=== PATIENT | female | born 1990 | race Caucasian/White ===

== ENCOUNTER → 2020-08-19 13:18 | Outpatient (BNVA) | payer OTHER, SELFPAY | PROVIDERS: Family Provider Family Medicine; PCP Family Medicine; Visit Provider Obstetrics & Gynecology | DX: Z32.01 Encounter for pregnancy test, result positive (principal) | CPT/HCPCS: 81025 ==

== ENCOUNTER → 2020-09-14 09:50 | Outpatient (BNVA) | payer OTHER, SELFPAY | PROVIDERS: Family Provider Family Medicine; PCP Family Medicine; Visit Provider Obstetrics & Gynecology | DX: Z34.90 Encounter for supervision of normal pregnancy, unspecified, unspecified trimester | CPT/HCPCS: 80307; 84315; 85027; 86592; 86803; 86850; 86900; 87086; 87340 ==

== ENCOUNTER → 2020-09-27 12:02 | Outpatient (BNVA) | payer OTHER, SELFPAY | PROVIDERS: Family Provider Family Medicine; PCP Family Medicine; Visit Provider Obstetrics & Gynecology | DX: Z34.81 Encounter for supervision of other normal pregnancy, first trimester (principal) | CPT/HCPCS: 84315; 87491; 87591 ==

== ENCOUNTER → 2021-01-10 10:36 | Outpatient (BNVA) | payer OTHER, SELFPAY | PROVIDERS: Family Provider Family Medicine; PCP Family Medicine; Visit Provider Obstetrics & Gynecology | DX: Z34.80 Encounter for supervision of other normal pregnancy, unspecified trimester (principal); Z3A.00 Weeks of gestation of pregnancy not specified | CPT/HCPCS: 82950; 84315; 85025 ==

== ENCOUNTER → 2021-03-07 08:55 | Outpatient (BNVA) | payer OTHER, SELFPAY | PROVIDERS: Family Provider Family Medicine; PCP Family Medicine; Visit Provider Obstetrics & Gynecology | DX: Z34.80 Encounter for supervision of other normal pregnancy, unspecified trimester (principal) | CPT/HCPCS: 84315; 87081 ==

== ENCOUNTER → 2021-03-28 09:04 | Outpatient (BNVA) | payer OTHER, SELFPAY | PROVIDERS: Family Provider Family Medicine; PCP Family Medicine; Visit Provider Obstetrics & Gynecology | DX: Z34.80 Encounter for supervision of other normal pregnancy, unspecified trimester (principal); Z20.822 Contact with and (suspected) exposure to COVID-19 | CPT/HCPCS: 84315; 87635 ==

== ENCOUNTER → 2021-04-04 07:52 | Outpatient (BNVA) | payer OTHER, SELFPAY | PROVIDERS: Family Provider Family Medicine; PCP Family Medicine; Visit Provider Obstetrics & Gynecology | DX: Z34.80 Encounter for supervision of other normal pregnancy, unspecified trimester (principal); Z20.822 Contact with and (suspected) exposure to COVID-19 | CPT/HCPCS: 84315; 87635 ==

== ENCOUNTER 2021-04-05 20:30 | Inpatient (IN) | payer OTHER, SELFPAY ==
--- NOTE | 2021-04-05 20:00 | PM.OPHPUD ---
Labor & Delivery H&P Update Date of Procedure: April 06, 2021 Date H&P Performed: 04/04/21 H&P update information: I have reviewed H&P completed within last 30 days, I have examined patient prior to procedure, No changes to prior documentation and H&P is in [facility] EMR on date indicated Admission Diagnosis:
[2021-04-05 20:03] VITALS: BP 121/67; PULSE 86
[2021-04-05 20:36] VITALS: RESP 17; TEMP 36.8
[2021-04-05 20:43] VITALS: BMI 28.0
[2021-04-05] MEDS: lactated ringers 1,000 ML 999 ML IV (20:50)
[2021-04-05 21:18] LABS: Basophils # 0.1 10^3/uL (0.0-0.1); Basophils % 0.3 %; Eosinophils # 0.2 10^3/uL (0.0-0.8); Eosinophils % 1.3 %; Hematocrit 34.9 % (37.0-47.0); Hemoglobin 11.6 g/dL (11.5-15.3); Lymphocytes # 3.3 10^3/uL (0.8-4.8); Lymphocytes % 22.7 %; Mean Corpuscular HGB Conc 33.2 g/dL (30.0-36.0); Mean Corpuscular Hemoglobin 30.4 pg (28.0-34.0); Mean Corpuscular Volume 91.4 fL (81-99); Mean Platelet Volume 10.3 fL (7.4-10.4); Monocytes # 1.3 10^3/uL (0.2-0.9); Monocytes % 8.8 %; Neutrophils # 9.53 10^3/uL (1.8-7.7); Neutrophils % 66.3 %; Nucleated Red Blood Cells % 0 %; Platelet Count 250 10^3/cmm (130-400); Red Blood Count 3.82 10^6/uL (4.1-5.3); Red Cell Distribution Width 13.2 % (12.1-15.1); White Blood Count 14.4 10^3/uL (4.0-10.0)
[2021-04-05 21:23] VITALS: BP 117/76; PULSE 82
[2021-04-05] MEDS: ampicillin 2,000 MG in sodium chloride 0.9% (plus) 50 ML 100 MG IV (21:44)
[2021-04-05 21:53] VITALS: BP 110/58; PULSE 83
[2021-04-05 22:23] VITALS: BP 110/65; PULSE 83
[2021-04-05] MEDS: miSOPROStol 100 mcg tablet 25 MCG VAGINAL (22:25)
[2021-04-05 22:53] VITALS: BP 110/55; PULSE 85
[2021-04-06] VITALS (32 sets, daily range): BP systolic 105–138; BP diastolic 55–92; PULSE 68–92; RESP 15–16; TEMP 36.3–37.2; O2SAT 98
[2021-04-06] MEDS: ampicillin 1,000 MG in sodium chloride 0.9% (plus) 50 ML 100 MG IV ×2 (01:37→05:43)
[2021-04-06] MEDS: miSOPROStol 100 mcg tablet 25 MCG VAGINAL (02:30)
[2021-04-06] MEDS: dextrose 5%-lactated ringers 1,000 ML 125 ML IV (03:03)
[2021-04-06] MEDS: oxytocin 30 UNIT/500 ML BAG 600 UNIT IV (07:34)
--- NOTE | 2021-04-06 07:55 | PM.DELIVERY ---
Delivery Note: Date of delivery: April 06, 2021 - PRE-DELIVERY DIAGNOSIS: 30-year-old 2 para 1-0-0-1 at 40 weeks and 2 day gestation Elective induction of labor for postdates GBS positive-on antibiotics Covid negative POST-DELIVERY DIAGNOSIS: Vaginal delivery on 04/06/2021 Manual removal of placenta PROCEDURE: Vaginal delivery on 04/06/2021 ANESTHESIA: None DELIVERING PHYSICIAN: Moni Rubio FACOG PRE-DELIVERY COURSE: Ms. Feliciano is a 30-year-old 2 para 1-0-0-1 at 40 weeks and 1 day gestation who presented to labor and delivery on 04/05/2021 at 8 PM for scheduled induction of labor for postdates . On admission she was noted to be 1 to 2 cm, 50% -2 station, cephalic with a category 1 tracing. She was admitted to labor and delivery and induction was started at 10:30 PM with Cytotec. She made minimal cervical change after 4 hours and a second dose of Cytotec was placed at 2:30 AM on 04/06/2021. With this she started to have more frequent contractions and about 3 hours later was a lot more uncomfortable. On exam at 6:08 AM she was noted to be 4 cm 80% and -2 with a bulging bag and at time of exam spontaneous rupture of membranes with clear fluid happened. Immediately after SROM tracing showed variables which resolved within 10 minutes. She grew a lot more uncomfortable and started to make rapid cervical change. At 6:52 a.m. she was 8 cm 100% and +1 station and she was fully dilated at 7 AM. She was breathing for contractions and was ready to push at 7:10 AM. She was set up in lithotomy. DELIVERY NOTE: She was set up in lithotomy position and was pushing effectively. She was noted to be +3 station and continued pushing well. The head delivered in AUR[place]A position, no nuchal cord was present. The shoulders and rest of the body followed with her next push. The baby's mouth and nose were suctioned and the baby was placed on the mother's belly. Once cord pulsations stopped the cord was clamped and cut. When the cord was released to collect cord blood the cord retracted. Manual removal of the placenta was done without any difficulty and patient tolerated this well. The placenta was noted to be intact without any remanence noted within the uterus. The fundus was noted to be firm and well contracted. The lower uterine segment was boggy and was bleeding and bimanual massage was very uncomfortable for patient given the lack of epidural and decision was made to put Cytotec to help assist with the forming of the fundus-700 mcg of Cytotec was placed per rectum and with this uterine tone improved and bleeding was controlled. The vagina and cervix were inspected and no cervical or sulcal lacerations were noted. The perineum was intact. She had bilateral labial tears larger on the right side however these were hemostatic after holding pressure and were not repaired. Baby girl, Emily Galan born at 7:15 AM on 04/[birth year]21 with 8/9, weighing 7 pounds 5 ounces, 3310 g, 20-1/2 inches long. Placenta was delivered manually intact with membranes. Cotyledons were intact , inserted umbilical cord with 3 vessels noted. Estimated blood loss 400 mL. Complications-none, both baby and mother were left recover in a stable condition. This documentation was created by [employer] production roustabout software (known for inherent production roustabout error). Every effort was made to assure accuracy of production roustabout. Any obvious errors or omissions should be clarified with the author of the document. Coding Level of Care Code Acute Machining Technician for Malik Winters
[2021-04-06] MEDS: miSOPROStol 100 mcg tablet 800 MCG PR (08:01)
--- NOTE | 2021-04-06 08:47 | PC.NURSE ---
note This experienced mom has already nursed her new baby. She has no concerns about the feeding at this time. Provided contact information
[2021-04-06] MEDS: benzocaine-menthol 78 gm Canister 1 SPRAY TOPICAL (09:47)
[2021-04-06] MEDS: lanolin oint 7 gm 1 APPLIC TOPICAL (09:48)
[2021-04-06] MEDS: docusate sodium 100 mg Capsule PO ×2 (09:48→18:26)
[2021-04-06] MEDS: prenatal vitamin Capsule 1 CAP PO (09:48)
[2021-04-06] MEDS: ibuprofen 800 mg tablet PO ×3 (09:48→20:03)
--- NOTE | 2021-04-06 11:10 | P.DS_ITS ---
Discharge Providers SUSTAINABILITY PROJECT COORDINATOR Date of Admission: 04/05/21 20:30 Date of Discharge: 04/07/21 Attending Provider at Admission: Moni Santiago MD Attending Provider at Discharge: Moni Santiago MD Primary Care Provider: PRE-DELIVERY DIAGNOSIS: 30-year-old 2 para 1-0-0-1 at 40 weeks and 2 day gestation Elective induction of labor for postdates GBS positive-on antibiotics Covid negative POST-DELIVERY DIAGNOSIS: Vaginal delivery on 04/06/2021 Manual removal of placenta PROCEDURE: Vaginal delivery on 04/06/2021 ANESTHESIA: None DELIVERING PHYSICIAN: Moni Rubio FACOG PRE-DELIVERY COURSE: Ms. Feliciano is a 30-year-old 2 para 1-0-0-1 at 40 weeks and 1 day gestation who presented to labor and delivery on 04/05/2021 at 8 PM for scheduled induction of labor for postdates . On admission she was noted to be 1 to 2 cm, 50% -2 station, cephalic with a category 1 tracing. She was admitted to labor and delivery and induction was started at 10:30 PM with Cytotec. She made minimal cervical change after 4 hours and a second dose of Cytotec was placed at 2:30 AM on 04/06/2021. With this she started to have more frequent contractions and about 3 hours later was a lot more uncomfortable. On exam at 6:08 AM she was noted to be 4 cm 80% and -2 with a bulging bag and at time of exam spontaneous rupture of membranes with clear fluid happened. Immediately after SROM tracing showed variables which resolved within 10 minutes. She grew a lot more uncomfortable and started to make rapid cervical change. At 6:52 a.m. she was 8 cm 100% and +1 station and she was fully dilated at 7 AM. She was breathing for contractions and was ready to push at 7:10 AM. She was set up in lithotomy. DELIVERY NOTE: She was set up in lithotomy position and was pushing effectively. She was noted to be +3 station and continued pushing well. The head delivered in A[place]A position, no nuchal cord was present. The shoulders and rest of the body followed with her next push. The baby's mouth and nose were suctioned and the baby was placed on the mother's belly. Once cord pulsations stopped the cord was clamped and cut. When the cord was released to collect cord blood the cord retracted. Manual removal of the placenta was done without any difficulty and patient tolerated this well. The placenta was noted to be intact without any remanence noted within the uterus. The fundus was noted to be firm and well contracted. The lower uterine segment was boggy and was bleeding and bimanual massage was very uncomfortable for patient given the lack of epidural and decision was made to put Cytotec to help assist with the forming of the fundus- 700 mcg of Cytotec was placed per rectum and with this uterine tone improved and bleeding was controlled. The vagina and cervix were inspected and no cervical or sulcal lacerations were noted. The perineum was intact. She had bilateral labial tears larger on the right side however these were hemostatic after holding pressure and were not repaired. Baby girl, Emily Galan born at 7:15 AM on 04/06/2021 with 8/9, weighing 7 pounds 5 ounces, 3310 g, 20-1/2 inches long. Placenta was delivered manually intact with membranes. Cotyledons were intact , inserted umbilical cord with 3 vessels noted. Estimated blood loss 400 mL. Complications-none, both baby and mother were left recover in a stable condition. HOSPITAL COURSE: She underwent an uncomplicated vaginal delivery on 04/06/2021. She did well on day 0 and was ambulating well, tolerating regular diet, voiding freely, passing flatus. She was breast-feeding without difficulty and bonding well with her daughter. Pain was well-controlled with by mouth pain medication. She denied nausea, vomiting, fever, chills, shortness of breath, leg pain. She had moderate vaginal bleeding. On day # 1 she continued to do well with stable vital signs and stable hemoglobin at 10.9. She was discharged home on day 1 in a stable condition, as she desired early discharge. Warning signs for endometritis, mastitis, DVT/PE were reviewed with her. Post delivery activity restrictions were also reviewed with her at all her questions were answered to her satisfaction. Plans on using pills for contraception which will be started at her 6-week visit EXAM AT DISCHARGE: Gen.: No acute distress Heart: S1-S2 heard, regular rate and rhythm Lungs: Clear to auscultation bilaterally Abdomen: Soft, fundus firm below umbilicus Legs: No calf tenderness, trace bilateral pitting pedal edema. CONDITION AT DISCHARGE: Stable This documentation was created by [email or web address] pv design and installation technician software (known for inherent pv design and installation technician error). Every effort was made to assure accuracy of pv design and installation technician. Any obvious errors or omissions should be clarified with the author of the document. Reason for Visit Reason for Visit: induction Discharge Data Data Completed and Pending: Pending at discharge Category Date Time Status Hemagram Timed Lab 04/06/21 20:05 Uncollected Labs from last 24 hours 04/05/21 20:40 WBC 14.4 H RBC 3.82 L Hgb 11.6 Hct 34.9 L MCV 91.4 MCH 30.4 MCHC 33.2 RDW 13.2 Plt Count 250 MPV 10.3 Neut % (Auto) 66.3 Lymph % (Auto) 22.7 Lucas % (Auto) 8.8 Eos % (Auto) 1.3 Baso % (Auto) 0.3 Neut # (Auto) 9.53 H Lymph # (Auto) 3.3 Lucas # (Auto) 1.3 H Eos # (Auto) 0.2 Baso # (Auto) 0.1 Nucleated RBC % (a uto) 0 Nucleated RBCs # 0.0 Vitals: Last Vital Signs Temp 98.7 F 04/06/21 08:47 Pulse 88 04/06/21 10:49 Resp 16 04/06/21 08:47 BP 132/62 04/06/21 10:49 Discharge Plan Discharge Patient Disposition: Home Condition: Stable Prescriptions: New docusate sodium 100 mg Capsule 100 mg PO BID PRN (Reason: constipation) Qty: 30 RF: 0 ibuprofen 800 mg tablet 800 mg PO Q8H Qty: 30 RF: 0 Continued prenat.vits,rubin,yqw-mowr-oeqdn Tablet 1 tab PO DAILY RF: 0 No Action (DME) breast pump [Pump In Style Advanced] Device See Rx Instructions .ROUTE .MEDSUPPLY Qty: 1 RF: 0 Discharge Orders: Discharge Order (Routine); Ordered 04/07/21 Ordered By: Moni Santiago Referrals: Moni Santiago MD [Physician] - (6-week visit with Dr. Rubio) Discharge Diet: Usual diet Discharge Activity: Limit activity as instructed Patient Instructions: Opioid Safety Activity Restrictions/Additional Instructions: Pelvic rest for 6 weeks, no heavy lifting for 6 weeks 6-week visit with Dr. Rubio Discharge Attestations SUSTAINABILITY PROJECT COORDINATOR Time Spent in Discharge Care*: greater than 30 min Coding Level of Care Code Acute Assistant Women'S Rowing Coach for Chg Fwd History History History 2 Term 2 Miscarriages/Ectopic 0 0 Living Children 2 Other History: 2, Para 2001, x 2 1----> 06/28/2019, full-term vaginal delivery-active labor at 38 weeks and 6 days, second-degree episiotomy with second-degree vaginal tear. Delivered by Dr. Rubio at [facility]. Baby boy Franco weighing 7 lbs. 6 oz. GBS bacteriuria. 2--> 04/06/2021, full-term vaginal delivery, induction at 40 weeks and 1 day, factors this okay weighing 7 pounds 5 ounces. Positive GBS rectovaginal culture delivered by Dr. Rubio at [facility]. Intact perineum-bilateral labial tears which were not repaired
--- NOTE | 2021-04-06 15:26 | PC.NURSE ---
moved to room 9 via ambulation without difficulty. oriented to room/call light. shower supplies and clean gown provided for if pt wants to shower at any time.
[2021-04-06 20:07] LABS: Hematocrit 32.5 % (37.0-47.0); Hemoglobin 10.9 g/dL (11.5-15.3); Mean Corpuscular HGB Conc 33.5 g/dL (30.0-36.0); Mean Corpuscular Hemoglobin 30.3 pg (28.0-34.0); Mean Corpuscular Volume 90.3 fL (81-99); Mean Platelet Volume 10.3 fL (7.4-10.4); Platelet Count 228 10^3/cmm (130-400); Red Cell Distribution Width 12.9 % (12.1-15.1); White Blood Count 16.1 10^3/uL (4.0-10.0)
[2021-04-07 04:09] VITALS: BP 115/70; PULSE 76; RESP 15; TEMP 36.8; O2SAT 99
[2021-04-07 09:20] VITALS: BP 112/73; PULSE 98; RESP 16; TEMP 36.4; O2SAT 98
== END 2021-04-07 09:20 | disposition home or self-care (01) | DRG 807 ==
LOC: OPOB 04-06 03:07 → OBGYN 04-06 03:07
PROVIDERS: Admitting Provider Obstetrics & Gynecology; Family Provider Family Medicine; PCP Family Medicine; Visit Provider Obstetrics & Gynecology
DX: O48.0 Post-term pregnancy (principal); Z37.0 Single live birth; Z3A.40 40 weeks gestation of pregnancy; O99.824 Streptococcus B carrier state complicating childbirth
CPT/HCPCS: 36415; 59409; 85025; 85027; J0290

== ENCOUNTER → 2022-07-17 09:55 | Outpatient (BNVA) | payer OTHER, SELFPAY | PROVIDERS: Family Provider Family Medicine; Visit Provider Nurse Practitioner Women's Health | DX: E01.0 Iodine-deficiency related diffuse (endemic) goiter (principal); Z01.89 Encounter for other specified special examinations; Z12.4 Encounter for screening for malignant neoplasm of cervix | CPT/HCPCS: 84439; 84443; 87624 ==

== ENCOUNTER → 2022-10-02 14:38 | Outpatient (BNVA) | payer OTHER, SELFPAY | PROVIDERS: Family Provider Family Medicine; PCP Family Medicine; Visit Provider Family Medicine | DX: E03.8 Other specified hypothyroidism (principal) | CPT/HCPCS: 84439 ==

== ENCOUNTER → 2022-10-04 10:23 | Outpatient (BNVA) | payer OTHER, SELFPAY | PROVIDERS: Family Provider Family Medicine; PCP Family Medicine; Visit Provider Family Medicine | DX: E03.8 Other specified hypothyroidism (principal) | CPT/HCPCS: 84443 ==

== ENCOUNTER → 2023-07-25 14:28 | Outpatient (BNVA) | payer OTHER, SELFPAY | PROVIDERS: Family Provider Family Medicine; PCP Family Medicine; Visit Provider Obstetrics & Gynecology | DX: Z34.91 Encounter for supervision of normal pregnancy, unspecified, first trimester (principal); Z3A.09 9 weeks gestation of pregnancy | CPT/HCPCS: 76801 ==

== ENCOUNTER → 2023-08-07 13:29 | Outpatient (BNVA) | payer OTHER, SELFPAY | PROVIDERS: Family Provider Family Medicine; PCP Family Medicine; Visit Provider Obstetrics & Gynecology | DX: Z34.90 Encounter for supervision of normal pregnancy, unspecified, unspecified trimester (principal); Z3A.00 Weeks of gestation of pregnancy not specified | CPT/HCPCS: 85025; 86592; 86762; 86803; 86850; 86900; 87340; 87806 ==

== ENCOUNTER → 2023-08-09 15:29 | Outpatient (BNVA) | payer OTHER, SELFPAY | PROVIDERS: Family Provider Family Medicine; PCP Family Medicine; Visit Provider Obstetrics & Gynecology | DX: Z34.90 Encounter for supervision of normal pregnancy, unspecified, unspecified trimester (principal); Z3A.00 Weeks of gestation of pregnancy not specified | CPT/HCPCS: 80307; 84315; 87086; 87491; 87591 ==

== ENCOUNTER → 2023-09-13 13:00 | Outpatient (BNVA) | payer OTHER, SELFPAY | PROVIDERS: Family Provider Family Medicine; PCP Family Medicine; Visit Provider Nurse Practitioner Women's Health | DX: Z34.80 Encounter for supervision of other normal pregnancy, unspecified trimester (principal); E03.8 Other specified hypothyroidism | CPT/HCPCS: 84315; 84439; 84443 ==

== ENCOUNTER → 2023-10-15 14:33 | Outpatient (BNVA) | payer OTHER, SELFPAY | PROVIDERS: Family Provider Family Medicine; PCP Family Medicine; Visit Provider Obstetrics & Gynecology | DX: Z34.92 Encounter for supervision of normal pregnancy, unspecified, second trimester (principal); Z3A.20 20 weeks gestation of pregnancy | CPT/HCPCS: 76805 ==

== ENCOUNTER → 2023-11-07 14:21 | Outpatient (BNVA) | payer OTHER, SELFPAY | PROVIDERS: Family Provider Family Medicine; PCP Family Medicine; Visit Provider Nurse Practitioner Women's Health | DX: Z34.80 Encounter for supervision of other normal pregnancy, unspecified trimester (principal); Z3A.00 Weeks of gestation of pregnancy not specified | CPT/HCPCS: 82950; 84315 ==

== ENCOUNTER → 2023-12-06 07:59 | Outpatient (BNVA) | payer OTHER, SELFPAY | PROVIDERS: Family Provider Family Medicine; PCP Family Medicine; Visit Provider Obstetrics & Gynecology | DX: Z34.80 Encounter for supervision of other normal pregnancy, unspecified trimester (principal) | CPT/HCPCS: 84315; 85025 ==

== ENCOUNTER → 2024-01-07 15:50 | Outpatient (BNVA) | payer OTHER, SELFPAY | PROVIDERS: Family Provider Family Medicine; PCP Family Medicine; Visit Provider Nurse Practitioner Women's Health | DX: Z34.80 Encounter for supervision of other normal pregnancy, unspecified trimester (principal); Z3A.00 Weeks of gestation of pregnancy not specified; R10.11 Right upper quadrant pain | CPT/HCPCS: 80053; 85025 ==

== ENCOUNTER → 2024-01-08 08:43 | Outpatient (BNVA) | payer OTHER, SELFPAY | PROVIDERS: Family Provider Family Medicine; PCP Family Medicine; Visit Provider Nurse Practitioner Women's Health | DX: O99.019 Anemia complicating pregnancy, unspecified trimester (principal); E03.8 Other specified hypothyroidism; Z3A.00 Weeks of gestation of pregnancy not specified | CPT/HCPCS: 82607; 82728; 82746; 83550; 84315; 84443; 87077; 87086; 87184 ==

== ENCOUNTER → 2024-01-27 08:06 | Outpatient (BNVA) | payer OTHER, SELFPAY | PROVIDERS: Family Provider Family Medicine; PCP Family Medicine; Visit Provider Obstetrics & Gynecology | DX: Z34.80 Encounter for supervision of other normal pregnancy, unspecified trimester (principal) | CPT/HCPCS: 84315; 85025; 87086 ==

== ENCOUNTER → 2024-02-07 08:14 | Outpatient (BNVA) | payer OTHER, SELFPAY | PROVIDERS: Family Provider Family Medicine; PCP Family Medicine; Visit Provider Obstetrics & Gynecology | DX: Z34.80 Encounter for supervision of other normal pregnancy, unspecified trimester (principal); Z3A.00 Weeks of gestation of pregnancy not specified | CPT/HCPCS: 84315; 87081 ==

== ENCOUNTER → 2024-02-21 08:30 | Outpatient (BNVA) | payer OTHER, SELFPAY | PROVIDERS: Family Provider Family Medicine; PCP Family Medicine; Visit Provider Obstetrics & Gynecology | DX: Z34.90 Encounter for supervision of normal pregnancy, unspecified, unspecified trimester (principal); Z3A.00 Weeks of gestation of pregnancy not specified | CPT/HCPCS: 81000 ==

== ENCOUNTER 2024-02-25 17:18 | Inpatient (IN) | payer OTHER, SELFPAY ==
[2024-02-25] VITALS (9 sets, daily range): BP systolic 98–124; BP diastolic 54–69; PULSE 68–83; RESP 16; TEMP 36.7; BMI 29.7
[2024-02-25 18:09] LABS: Basophils % 0.2 %; Eosinophils # 0.1 10^3/uL (0.0-0.8); Eosinophils % 0.4 %; Hematocrit 34.9 % (36-47); Lymphocytes # 2.8 10^3/uL (0.8-4.8); Lymphocytes % 20.8 %; Mean Corpuscular Hemoglobin 29.2 pg (27-33); Mean Corpuscular Volume 88.6 fl (85-98); Monocytes # 1.1 10^3/uL (0.2-0.9); Monocytes % 8.4 %; Neutrophils % 69.8 %; Nucleated Red Blood Cells % 0 %; Platelet Count 251 10^3/cmm (157-399); Red Blood Count 3.94 10^6/uL (3.85-5.65); White Blood Count 13.49 10^3/uL (3.29-11.43)
[2024-02-25] MEDS: ampicillin 2,000 MG in sodium chloride 0.9% (plus) 50 ML 100 MG IV (18:10)
[2024-02-25] MEDS: miSOPROStol 100 mcg tablet 25 MCG VAGINAL (18:11)
--- NOTE | 2024-02-25 18:59 | PM.OPHPUD ---
Labor & Delivery H&P Update Date of Procedure: February 26, 2024 Date H&P Performed: 02/21/24 H&P update information: I have reviewed H&P completed within last 30 days, I have examined patient prior to procedure and No changes to prior documentation Admission Diagnosis:
[2024-02-25] MEDS: ampicillin 1,000 MG in sodium chloride 0.9% (plus) 50 ML 100 MG IV (22:23)
[2024-02-26] VITALS (19 sets, daily range): BP systolic 104–128; BP diastolic 55–84; PULSE 61–86; RESP 16; TEMP 36.4–37
[2024-02-26] MEDS: oxytocin 30 UNIT/500 ML BAG 600 UNIT IV (01:52)
--- NOTE | 2024-02-26 02:00 | PM.DELIVERY ---
Delivery Note: Date of delivery: February 26, 2024 Pre-delivery diagnoses: Term Post-delivery diagnoses: Term delivered Procedure: Spontaneous vaginal delivery Delivering Physician: Reynaldo Valenzuela MD Estimated blood loss (mL): 200 Pre-Delivery Course: TMsApolonia Feliciano is a 33 year old established patient with LMP of 05/22/2023, DREW 02/26/2024, placing her at 39-6/7 weeks today. CC: Admitted for elective induction HPI: Received appropriate care. Daily vitamins since start of care. labs have all been normal, including negative for HIV. She was found to positive for Group B Strep from screening at 36 weeks. She has gained approximately 30 lbs throughout the . She denies a history of HTN during . Glucose tolerance screening for gestational diabetes was negative. Delivery: Was called by the nurse the patient was noted to be at 9 cm and feeling like pushing, had a precipitous delivery so was placed in the dorsal lithotomy position, prepped and draped in the usual sterile fashion The patient did not have epidural anesthesia. At 0144 the patient delivered a viable 40 weeks female weighing 3560 g with scores of 8 and 9 at one and five minutes, respectively. The vertex was delivered spontaneously over intact perineum. No nuchal cord was noted. The infant was easily delivered and the oropharynx and nasopharynx was bulb suctioned by nursing personnel. The was noted to have spontaneous cry and spontaneous movement of all four extremities. The cord was clamped x 2 and cut and noted to have 2 arteries and one vein. The infant was on the mother's abdomen where nursing personnel were in attendance. The placenta delivered intact spontaneously and the uterus was explored. 20 units of Pitocin was placed in the IV bag to firm the uterus. Examination of the cervix and vaginal vault did not reveal any lacerations. Examination of the perineum showed no lacerations. The patient tolerated this procedure well, and recovered in L&D with her infant in their LDR room. All sponge and needle counts were correct. Post-Delivery Status: Good and stable History History History 3 Term 2 0 Miscarriages/Ectopic 0 Living Children 2 Coding Level of Care Code Acute Code for Chg Fwd
[2024-02-26] MEDS: benzocaine-menthol 78 gm Canister 1 SPRAY TOPICAL (04:49)
[2024-02-26] MEDS: lanolin oint 7 gm 1 APPLIC TOPICAL (04:49)
[2024-02-26] MEDS: docusate sodium 100 mg Capsule PO ×2 (09:21→21:04)
[2024-02-26] MEDS: ibuprofen 800 mg tablet PO ×3 (09:21→21:03)
[2024-02-26] MEDS: cetirizine 10 mg Tablet PO (09:21)
[2024-02-26] MEDS: pantoprazole DR 40 mg Tablet PO (09:21)
[2024-02-26] MEDS: PRENATAL VIT NO.130/IRON/FOLIC 1 EACH TABLET PO (09:21)
--- NOTE | 2024-02-26 14:03 | P.PN_ITS ---
Subjective 2 Subjective: Mrs. Feliciano 33-year-old female G3, P3 status post spontaneous vaginal delivery day 1. No complaints. Refers feeling fine. Vitals/I&O/Wt Last Vital Signs Temp 97.6 F 02/26/24 09:20 Pulse 74 02/26/24 09:20 Resp 16 02/26/24 09:20 BP 115/76 02/26/24 09:20 O2 Del Method Room Air 02/26/24 09:20 02/25/24 02/26/24 02/26/24 22:59 06:59 14:59 Intake Total 50 / 50 413 / 463 Output Total 200 / 200 Balance 50 / 50 213 / 263 Weight last 48 hrs Weight 86.183 kg Physical Exam 2 Narrative: GA; alert and oriented x 3 HEENT: normal Breasts: engorged Nipples - skin intact Lungs; clear to auscultation Heart: regular rhythm, no murmurs. Abd: Appropriately tender. BS+. Uterine fundus below umbilicus. No Fundal Tenderness. Perineum: normal lochia. Extremities: no edema, no cyanosis, no tenderness. Data 02/26/24 15:35 A&P Assessment and plan (1) Term delivered: Mrs. Feliciano 33-year-old female is status post spontaneous vaginal delivery day 1. She is afebrile hemodynamically stable. Tolerating diet well. Ambulating without difficulty. Plan Continue observation Attestations 2 Medical Necessity Statement*: In my professional opinion per admitting diagnosis Coding Level of Care Code Acute Code for Chg Fwd Diagnoses Term delivered O80
[2024-02-26 16:10] LABS: Hematocrit 33.2 % (36-47); Mean Corpuscular HGB Conc 32.5 g/dL (30-55); Mean Corpuscular Volume 89.2 fl (85-98); Mean Platelet Volume 10.3 fL (7.4-10.4); Platelet Count 216 10^3/cmm (157-399); Red Blood Count 3.72 10^6/uL (3.85-5.65); Red Cell Distribution Width 16.1 % (12.1-15.1); White Blood Count 15.85 10^3/uL (3.29-11.43)
[2024-02-27 04:00] VITALS: BP 126/74; PULSE 76; RESP 16; TEMP 36.8
--- NOTE | 2024-02-27 08:13 | P.DS_ITS ---
Discharge Providers SEARCH ENGINE OPTIMIZATION ANALYST Date of Admission: 02/25/24 17:18 Date of Discharge: 02/27/24 Attending Provider at Admission: Reynaldo Valenzuela MD Attending Provider at Discharge: Reynaldo Valenzuela MD Primary Care Provider: Jennifer Zamora MD Diagnoses at Discharge Discharge Diagnosis (1) Term delivered: Status: Acute Reason for Visit Reason for Visit: IOL Hospital Course Hospital Course Ms. Feliciano is a 33 year old established patient with LMP of 05/22/2023, DREW 02/26/2024, placing her at 39-6/7 weeks when admitted for elective induction. Misoprostol for cervical ripening was given only once and she progressed rapidly to have a spontaneous vaginal delivery without complication. observation was uneventful. She is afebrile and hemodynamically stable day 1. Tolerating diet well. Ambulating without difficulty. She was counseled regarding pelvic rest for 6 weeks (no sex, no tampons, no vaginal douches). Return to the emergency room if any fever, increased bleeding or pain. Information Peripartum Data: Delivery Method: Vaginal Physical Exam Narrative: GA; alert and oriented x 3 HEENT: normal Breasts: engorged Nipples - skin intact Lungs; clear to auscultation Heart: regular rhythm, no murmurs. Abd: Appropriately tender. BS+. Uterine fundus below umbilicus. No Fundal Tenderness. Perineum: normal lochia. Extremities: no edema, no cyanosis, no tenderness. History History History 3 Term 2 0 Miscarriages/Ectopic 0 Living Children 2 Discharge Data Studies Completed and Pending Laboratory Results WBC 15.85 10^3/uL (3.29-11.43) H 02/26/24 15:35 RBC 3.72 10^6/uL (3.85-5.65) L 02/26/24 15:35 Hgb 10.80 g/dL (11.27-16.99) L 02/26/24 15:35 Hct 33.2 % (36-47) L 02/26/24 15:35 MCV 89.2 fl (85-98) 02/26/24 15:35 MCH 29.0 pg (27-33) 02/26/24 15:35 MCHC 32.5 g/dL (30-55) 02/26/24 15:35 RDW 16.1 % (12.1-15.1) H 02/26/24 15:35 Plt Count 216 10^3/cmm (157-399) 02/26/24 15:35 MPV 10.3 fL (7.4-10.4) 02/26/24 15:35 Neut % (Auto) 69.8 % 02/25/24 17: Lymph % (Auto) 20.8 % 02/25/24 17: [place] % (Auto) 8.4 % 02/25/24 17:29 Eos % (Auto) 0.4 % 02/25/24 17: Baso % (Auto) 0.2 % 02/25/24 17: Neut # (Auto) 9.40 10^3/uL (1.8-7.7) H 02/25/24 17: Lymph # (Auto) 2.8 10^3/uL (0.8-4.8) 02/25/24 17: [place] # (Auto) 1.1 10^3/uL (0.2-0.9) H 02/25/24 17:29 Eos # (Auto) 0.1 10^3/uL (0.0-0.8) 02/25/24 17: Baso # (Auto) 0.0 10^3/uL (0.0-0.1) 02/25/24 17: Nucleated RBC % (auto) 0 % 02/25/24 17: Nucleated RBCs # 0.0 /100WBC 02/25/24 17: Blood Type A Positive 02/25/24 17: Rho(D) Type Rh positive 02/25/24 17:29 Antibody Screen Negative 02/25/24 17:29 Vitals Last Vital Signs Temp 98.3 F 02/27/24 04:00 Pulse 76 02/27/24 04:00 Resp 16 02/27/24 04:00 BP 126/74 02/27/24 04:00 O2 Del Method Room Air 02/27/24 04:00 Results Labs OB ([facility]): Obstetrics US 11/22/20 Blood Type A Positive 02/25/24 Antibody Screen Negative 02/25/24 Hct 33.2 % (36-47) L 02/26/24 Hgb 10.80 g/dL (11.27-16.99) L 02/26/24 Rho(D) Type Rh positive 02/25/24 Plt Count 216 10^3/cmm (157-399) 02/26/24 Hep Bs Antigen Non-reactive (Nonreactive) 08/07/23 Hepatitis C Antibody Non-reactive (Nonreactive) 08/07/23 Rubella IgG Antibody 38.7 IU/mL (0.0-10.0) H 08/07/23 RPR Nonreactive (Nonreactive) 08/07/23 HIV 1&2 Ab & HIV 1 Ag Non-reactive (Non-Reactiv) 08/07/23 TSH 2.46 uIU/mL (0.27-4.20) 09/13/23 Free T4 1.04 ng/dL (0.82-1.77) 09/13/23 C.trachomatis RNA (TMA) Not detected (NOT DETECTED) N.gonorrhoeae RNA (TMA) Not detected (NOT DETECTED) T. vaginalis Amp RNA Not detected (NOT DETECTED) 08/09/23 Chlamydia/GC Comment See note 08/09/23 Glucose 1 Hr 50 gm 95 mg/dL (85-140) 11/07/23 Gest Glucose Tolerance 111 mg/dL 01/10/21 Hemoglobin A1c 4.9 % (4.0-6.0) 12/14/21 HCG, Qual Positive (Negative) H 08/19/20 Urine Opiates Screen Negative ng/mL (Negative) 08/09/23 Ur Barbiturates Screen Negative ng/mL (Negative) 08/09/23 Ur Phencyclidine Scrn Negative ng/mL (Negative) 08/09/23 Ur Amphetamines Screen Negative ng/mL (Negative) 08/09/23 U Benzodiazepines Scrn Negative ng/mL (Negative) 08/09/23 Urine Cocaine Screen Negative ng/mL (Negative) 08/09/23 U Marijuana (THC) Screen Negative ng/mL (Negative) 08/09/23 Micro Urine Specimen 01/27/24 Pap Smear Interpret See note 07/17/22 Discharge Plan Discharge Patient Disposition: Home Condition: Stable Prescriptions: New docusate sodium [Colace] 100 mg capsule 100 mg PO BID Qty: 60 0RF ibuprofen 800 mg tablet 800 mg PO TID PRN (Reason: pain) Qty: 60 0RF acetaminophen 325 mg capsule 325 mg PO Q4H PRN (Reason: fever or pain) Qty: 60 0RF ferrous sulfate [Iron (ferrous sulfate)] 325 mg (65 mg iron) tablet 325 mg PO BID Qty: 60 0RF Continued prenat.vits,rubin,zdz-pind-menie Tablet 1 tab PO DAILY cetirizine [Zyrtec] 10 mg tablet 10 mg PO DAILY ferrous sulfate 325 mg (65 mg iron) tablet 325 mg PO DAILY ascorbate calcium (vitamin C) 500 mg tablet 500 mg PO DAILY pantoprazole [Protonix] 40 mg tablet,delayed release (DR/EC) 40 mg PO DAILY Qty: 30 3RF Rx Instructions: take one tablet by mouth daily. Referrals: Reynaldo Valenzuela MD [Physician] - 6 Weeks Discharge Diet: Usual diet Discharge Activity: Limit activity as instructed Patient Instructions: Depression (DC), Opioid Safety (DC), Preeclampsia and Eclampsia After Delivery (GEN), Hemorrhage (DC), OB Discharge Report, OB Food/Drug Interaction Guide, Opioid Safety, OB Home Care, OB Vaginal Deliveries - [facility], Abnormal Bleeding Activity Restrictions/Additional Instructions: 1. Please call [facility] on next working day to make your appointment in 6 weeks. 2. Please stay home until you come back to the clinic on first post- hospatilization check up. 3. Please follow instructions on your medications CAREFULLY. 4. If you have abdominal incision, do not cover it unless dressing is necessary because of drainage. OK to shower, but avoid bath. Leave steri-strips until they fall off. If they are still on one week after surgery, you may remove them. 5. If you had vaginal surgery or vaginal repair, Dr. Valenzuela may instruct you to take SITZ bath. 6. Yellow, blood tinged odorous vaginal discharge is usually normal after hysterectomy or vaginal surgeries. 7. No SEXUAL INTERCOURSE, tampons, or douches until you are completely released from the post-operative care. 8. Avoid constipation by eating right and maybe using some Metamucil or Milk of Magnesia. 9. All prescription refills are given during the working hours. Please do no wait till it runs out. Call the clinic at [phone] before your medication runs out. The clinic will get in touch with your doctor to prescribe medications if necessary. 10. Please remain within 40 mile radius from our hospital because emergencies do happen now and then during the post-operative period. 11. If you have stairs at home, take one step at a time slowly and minimize the number of trips. It helps to stay in one floor for the next few days. No lifting except what you can lift by one hand until you are released from the post-operative care. 12. Driving is discouraged until you are well healed. It may be 3-4 weeks before you feel strong enough to drive. You should be able to turn and look through the rear window without pain and you should be able to push the brake pedal very hard without pain before you drive. No fast rules, but SAFETY should be your primary concern. DO NOT drive if you are on sedating medications such as narcotics. 13. Call the clinic (during working hours) to make urgent appointment or go to the Emergency room, if any of the following occurs: i. Vaginal bleeding becomes heavy, more than a period. ii. Incision becomes red and sore, or drains pus. iii. Your TEMPERATURE is over 100.4F or you have chill. iv. IV site becomes red and swollen (a little ``knot?? is usually OK) v. Persistent nausea and vomiting vi. Persistent constipation or diarrhea vii. Rash or allergic reaction to medications. Discharge Attestations SEARCH ENGINE OPTIMIZATION ANALYST Time Spent in Discharge Care*: greater than 30 min Coding Level of Care Code Acute Code for Chg Fwd Diagnoses Term delivered O80
[2024-02-27 09:30] VITALS: BP 111/74; PULSE 80; RESP 16; TEMP 36.8
[2024-02-27 09:43] VITALS: BP 111/74; PULSE 80; RESP 16; TEMP 36.8
== END 2024-02-27 09:44 | disposition home or self-care (01) | DRG 807 ==
LOC: OPOB 17:18 → OBGYN 17:18
PROVIDERS: Admitting Provider Obstetrics & Gynecology; Family Provider Family Medicine; PCP Family Medicine; Visit Provider Obstetrics & Gynecology
DX: O99.824 Streptococcus B carrier state complicating childbirth (principal); Z37.0 Single live birth; Z3A.39 39 weeks gestation of pregnancy; O62.3 Precipitate labor
CPT/HCPCS: 36415; 59025; 59409; 85025; 85027; 86850; 86900; J0290; J2590

== ENCOUNTER → 2025-04-14 16:40 | Outpatient (BNVA) | payer OTHER, SELFPAY | PROVIDERS: Family Provider Family Medicine; PCP Family Medicine; Visit Provider Nurse Practitioner Women's Health | DX: E03.8 Other specified hypothyroidism (principal) | CPT/HCPCS: 84439; 84443 ==

== ENCOUNTER → 2025-06-17 07:45 | Outpatient (BNVA) | payer OTHER, SELFPAY | PROVIDERS: Family Provider Family Medicine; PCP Family Medicine; Visit Provider Family Medicine | DX: E03.9 Hypothyroidism, unspecified (principal) | CPT/HCPCS: 84439; 84443 ==

== ENCOUNTER → 2025-08-16 08:29 | Outpatient (BNVA) | payer OTHER, SELFPAY | PROVIDERS: Family Provider Family Medicine; PCP Family Medicine; Visit Provider Family Medicine | DX: E03.9 Hypothyroidism, unspecified (principal) | CPT/HCPCS: 84443 ==